=== PATIENT | female | born 1960 | race Caucasian/White ===

== ENCOUNTER → 2019-11-22 15:54 | Outpatient (CLI) | payer OTHER, SELFPAY ==
--- NOTE | ~2019-11-22 | MM_ITS ---
EXAMINATION: MM screening nolan BI w radha HISTORY: Screening TECHNIQUE: Craniocaudal and mediolateral oblique 3-D tomosynthesis images were obtained and synthetic 2-D images were generated. CAD analysis was submitted and interpreted. COMPARISON: Comparison to multiple prior studies sequentially, with oldest reviewed study dated 06/2011. BREAST PARENCHYMAL COMPOSITION: There are scattered areas of fibroglandular density. FINDINGS: No significant change to clustered right breast calcifications. There is no evidence of jennyfer picious mass, calcification, or architectural distortion to suggest malignancy in either breast. Ther e has been no suspicious interval change. IMPRESSION: 1. No mammographic evidence of malignancy. 2. Recommend routine screening mammography in one year. BI-RADS Category 2: Benign finding(s). Reviewed, dictated and finalized at location A.
== END ==
PROVIDERS: Visit Provider Obstetrics & Gynecology
DX: Z12.31 Encounter for screening mammogram for malignant neoplasm of breast (principal)
CPT/HCPCS: 77063; 77067

== ENCOUNTER → 2021-10-16 13:35 | Outpatient (CLI) | payer OTHER, SELFPAY ==
--- NOTE | ~2021-10-16 | MM_ITS ---
EXAMINATION: MM screening nolan BI w radha HISTORY: Screening mammogram TECHNIQUE: Craniocaudal and mediolateral oblique 3-D tomosynthesis images were obtained and synthetic 2-D images were generated. CAD analysis was submitted and interpreted. COMPARISON: 11/22/2019, 09/08/2018, 08/11/2017 bilateral screening mammogram examinations BREAST PARENCHYMAL COMPOSITION: FINDINGS: Left breast: There is an approximately 5 x 10 x 6.7 mm new irregular spiculated mass in th e upper outer left breast, very suspicious for malignancy. Diagnostic left mammogram and ultrasound are recommended. Right breast: There is no evidence of suspicious mass, calcification, or architectural distortion to suggest malignancy in either breast. There has been no suspicious interval change. IMPRESSION: 1. New irregular approximately 5 x 10 mm spiculated mass in the upper outer quadrant of the left [address] 2. Diagnostic left mammogram and left breast ultrasound examination are recommended. BI-RADS Category 0: Incomplete: Needs additional imaging evaluation. Reviewed, dictated and finalized at location A. IMPRESSION: 1. New irregular approximately 5 x 10 mm spiculated mass in the upper outer joey drant of the left breast 2. Diagnostic left mammogram and left breast ultrasound examination are recomme nded. BI-RADS Category 0: Incomplete: Needs additional imaging evaluation.
== END ==
PROVIDERS: PCP Physician Assistant Medical; Visit Provider Nurse Practitioner
DX: Z12.31 Encounter for screening mammogram for malignant neoplasm of breast (principal); R92.8 Other abnormal and inconclusive findings on diagnostic imaging of breast
CPT/HCPCS: 77063; 77067

== ENCOUNTER → 2021-11-07 09:41 | Outpatient (CLI) | payer OTHER, SELFPAY ==
--- NOTE | ~2021-11-07 | MMUS_ITS ---
EXAMINATION: MM diagnostic nolan LT w radha, US breast LT limited HISTORY: New irregular approximately 5 x 10 mm irregular mass in upper outer quadrant of left breast reported on 10/16/2021 screening mammogram TECHNIQUE: Additional 3-D tomosynthesis images of the left breast were performed and synthetic 2-D im ages were generated. CAD analysis was submitted and interpreted. High resolution upper outer quadrant left breast ultrasound was performed. COMPARISON: 10/16/2021 bilateral screening mammogram FINDINGS: MAMMOGRAPHIC FINDINGS: Up to approximately 9 x 15 mm irregular high density soft tissue mass with spiculation is confirmed a t mid depth in the upper outer left breast. This is highly suggestive of malignancy mammographically. ULTRASOUND: There is an ill-defined irregular approximately 12 mm hypoechoic lesion with posterior shadowing, hig hly suggestive of malignancy. IMPRESSION: 1. Irregular high density spiculated mass in the upper outer quadrant of the left breast, highly sugg estive of malignancy 2. Ultrasound-guided biopsy is recommended BI-RADS category 5, highly suggestive of malignancy. Dr. Carrion telephoned the report and ultrasound-guided biopsy recommendation on 10/30/2021 at 1017 hours to Radhames Montalvo Reviewed, dictated and finalized at location A. IMPRESSION: 1. Irregular high density spiculated mass in the upper outer quadrant of the le ft breast, highly suggestive of malignancy 2. Ultrasound-guided biopsy is recommended BI-RADS category 5, highly suggestive of malignancy. Dr. Carrion telephoned the report and ultrasound-guided biopsy recommendation on at 1017 hours to Radhames Montalvo
== END ==
PROVIDERS: PCP Physician Assistant Medical; Visit Provider Nurse Practitioner
DX: R92.8 Other abnormal and inconclusive findings on diagnostic imaging of breast (principal)
CPT/HCPCS: 76642; 77061; 77065; G0279

== ENCOUNTER 2023-07-29 00:09 | Day surgery (SDC) | payer OTHER, SELFPAY ==
[2023-07-15 14:58] VITALS: BMI 27.3
[2023-07-29 07:06] VITALS: BP 127/77; PULSE 85; RESP 18; TEMP 36.7; O2SAT 100
[2023-07-29] MEDS: LACTATED RINGERS 1,000 ML 150 ML IV CONT (07:11)
--- NOTE | 2023-07-29 07:57 | WPDANESEPPF ---
Anes - Initial Pre Proc Eval Procedure: Operation Date: 07/29/23 08:30 Proposed Procedures p Colonoscopy - Polo Lucas MD Date/Time: 07/29/23 07:57 Surgeon: Polo Lucas MD Pre Op Diagnosis: Family HX colon cancer Patient Data Age: 62 Gender: F Height: 1.75 m Weight: 83.5 kg Last Vital Signs Temp 36.7 C 07/29/23 07:06 Pulse 85 07/29/23 07:06 Resp 18 07/29/23 07:06 BP 127/77 07/29/23 07:06 Pulse Ox 100 07/29/23 07:06 O2 Del Method Room Air 07/29/23 07:06 Allergies Allergy/AdvReac Type Severity Reaction Status Date / Time vicodin AdvReac Severe Nausea and Uncoded 07/29/23 07:05 Vomiting Home Medications Medication Instructions Recorded Confirmed Type cholecalciferol (vitamin D3) 125 125 mcg PO DAILY 10/31/21 07/15/23 History mcg (5,000 unit) capsule ascorbate calcium (vitamin C) 500 100 mg PO .PRN 04/12/22 07/29/23 History mg tablet calcium carbonate (Calcium 600) 600 mg PO DAILY 04/12/22 07/29/23 History cyanocobalamin (vitamin B-12) 1,000 mcg PO DAILY 04/12/22 07/15/23 History 1,000 mcg capsule simvastatin 20 mg tablet 20 mg PO DAILY #90 tabs 04/25/23 07/15/23 Rx amlodipine 5 mg tablet 5 mg PO DAILY 05/05/23 07/15/23 History plecanatide 3 mg tablet (Trulance) 3 mg PO DAILY #30 tabs 07/21/23 07/29/23 Rx Patient hx anesthesia problems: none Family hx anesthesia problems: none Results Review: All pre-operative results and documents have been reviewed as part of the pre-operative evaluation. 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 DVT (deep venous thrombosis) (~02/2022) Lower extremity x2-provoked by cancer Discontinued Eliquis September 2022. Family history of antiphospholipid syndrome Fungal toenail infection Headache, migraine HTN (hypertension), benign Hyperlipidemia MICHELLE (obstructive sleep apnea) Periodic health assessment, general screening, adult Vitamin B12 deficiency Vitamin D deficiency Surgical History Surgical History H/O dilation and curettage H/O hysterectomy with unilateral oophorectomy History of mastectomy Bilateral History of tonsillectomy Family History Family History Father Family history of coronary artery disease Acute myocardial infarction Cellulitis Mother Dementia Skin cancer Blood clotting disorder Social History Social History Smoking status: Never smoker Alcohol intake: current Alcohol use details: Socially Substance use: never Substance use type: does not use Lack of Transportation: No Lack of Food: Never True Current Housing: I Have Housing Concerned About Future Housing: No Difficulty Paying Gas/Electric Bills: No Difficulty Paying for Meds: No Currently Unemployed: No Education: High School Diploma/GED Difficulty w/ Childcare or Family Care: No Living arrangements: other Additional living arrangements comments: with sp Occupation/Education: other 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
--- NOTE | 2023-07-29 08:32 | PM.HPGS ---
History of Present Illness History of Present Illness Consent: Risks, benefits, and alternatives have been discussed and questions answered. Patient agrees to proceed with procedure. 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 DVT (deep venous thrombosis) (~02/2022) Lower extremity x2-provoked by cancer Discontinued Eliquis September 2022. Family history of antiphospholipid syndrome Fungal toenail infection Headache, migraine HTN (hypertension), benign Hyperlipidemia MICHELLE (obstructive sleep apnea) Periodic health assessment, general screening, adult Vitamin B12 deficiency Vitamin D deficiency Surgical History Surgical History H/O dilation and curettage H/O hysterectomy with unilateral oophorectomy History of mastectomy Bilateral History of tonsillectomy Family History Family History Father Family history of coronary artery disease Acute myocardial infarction Cellulitis Mother Dementia Skin cancer Blood clotting disorder Social History Social History Smoking status: Never smoker Alcohol intake: current Alcohol use details: Socially Substance use: never Substance use type: does not use Lack of Transportation: No Lack of Food: Never True Current Housing: I Have Housing Concerned About Future Housing: No Difficulty Paying Gas/Electric Bills: No Difficulty Paying for Meds: No Currently Unemployed: No Education: High School Diploma/GED Difficulty w/ Childcare or Family Care: No Living arrangements: other Additional living arrangements comments: with sp Occupation/Education: other 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 Gender identity (if verbalized by the patient): Female Sexual Orientation (if Verbalized by the Patient): Straight or Heterosexual Meds Home Medications and Allergies Home Medications Medication Instructions Recorded Confirmed Type cholecalciferol (vitamin D3) 125 125 mcg PO DAILY 10/31/21 07/15/23 History mcg (5,000 unit) capsule ascorbate calcium (vitamin C) 500 100 mg PO .PRN 04/12/22 07/29/23 History mg tablet calcium carbonate (Calcium 600) 600 mg PO DAILY 04/12/22 07/29/23 History cyanocobalamin (vitamin B-12) 1,000 mcg PO DAILY 04/12/22 07/15/23 History 1,000 mcg capsule simvastatin 20 mg tablet 20 mg PO DAILY #90 tabs 04/25/23 07/15/23 Rx amlodipine 5 mg tablet 5 mg PO DAILY 05/05/23 07/15/23 History plecanatide 3 mg tablet (Trulance) 3 mg PO DAILY #30 tabs 07/21/23 07/29/23 Rx Allergies Allergy/AdvReac Type Severity Reaction Status Date / Time vicodin AdvReac Severe Nausea and Uncoded 07/29/23 07:05 Vomiting Vital Signs Vital Signs - 24 hr 07/29/23 07:06 Temperature 98.1 F Pulse Rate 85 Respiratory Rate 18 Blood Pressure 127/77 Pulse Oximetry 100 Oxygen Delivery Room Air Exam Const: General: comfortable and no acute distress HENMT: Face/Nose/Sinus: Normal nares present Eyes: General: appearance normal, both eyes and all related structures Neck: Neck: no JVD Resp: Auscultation: clear to auscultation bilaterally Cardio: Rate: regular rate Rhythm: regular rhythm GI: Inspection: non-distended GI Palp: Yes Soft to palpation Skin: General skin exam: normal color Neuro: General: gait normal Speech: normal speech E
[2023-07-29 08:49] VITALS: BP 97/50; PULSE 75; RESP 17; O2SAT 96
[2023-07-29 08:59] VITALS: BP 104/56; PULSE 76; RESP 21; O2SAT 98
[2023-07-29 09:09] VITALS: BP 110/63; PULSE 71; RESP 23; O2SAT 100
== END 2023-07-29 09:20 | disposition home or self-care (01) ==
PROVIDERS: PCP Physician Assistant Medical; Visit Provider Internal Medicine Gastroenterology
PROC: 0DJD8ZZ Inspection of Lower Intestinal Tract, Via Natural or Artificial Opening Endoscopic (ICD-10-PCS; CPT 45378; principal; 2023-07-29 08:30)
DX: Z12.11 Encounter for screening for malignant neoplasm of colon (principal); K57.30 Diverticulosis of large intestine without perforation or abscess without bleeding; K63.89 Other specified diseases of intestine; K64.8 Other hemorrhoids; Z80.0 Family history of malignant neoplasm of digestive organs; I10 Essential (primary) hypertension; E78.5 Hyperlipidemia, unspecified; G47.33 Obstructive sleep apnea (adult) (pediatric); E55.9 Vitamin D deficiency, unspecified; E53.8 Deficiency of other specified B group vitamins; Z85.3 Personal history of malignant neoplasm of breast; Z86.718 Personal history of other venous thrombosis and embolism
CPT/HCPCS: 45378; J2704; J7120